=== PATIENT | male | born 1980 | race Caucasian/White ===

== ENCOUNTER 2023-05-02 07:49 | Day surgery (SDC) | payer SELFPAY ==
--- NOTE | 2023-04-26 17:57 | HP ---
DATE: 05/02/2023 HISTORY OF PRESENT ILLNESS: Patient is a 43 year-old male who presents with some bright red blood in the rectum. He had had colonoscopy about 7 years ago. He does have a family history of colon cancer. PAST MEDICAL HISTORY: Heartburn. CURRENT MEDICATIONS: Super beets. ALLERGIES: PER CHART. PAST SURGERIES: None. SOCIAL HISTORY: Negative. FAMILY HISTORY: Colon cancer, hypertension. REVIEW OF SYSTEMS: CONSTITUTIONAL: Denies fever or chills. CHEST: Denies shortness of breath. CVS: Denies chest pain. ABDOMEN: Denies abdominal pain. PHYSICAL EXAMINATION: GENERAL: No acute distress. CHEST: Nonlabored. No shortness of breath. CVS: Regular rate and rhythm. ABDOMEN: Soft. IMPRESSION: 1. FAMILY HISTORY OF COLON CANCER. 2. SOME BLOOD PER RECTUM. PLAN: Colonoscopy with Dr. Mark. Beaulieu. This report was dictated for Dr. Beaulieu by Celia Kincaid NP.
[2023-05-02 08:09] VITALS: TEMP 98.1
[2023-05-02] MEDS ORDERED: Lactated Ringers 1,000 ML IV SCH (08:30)
[2023-05-02] MEDS ORDERED: Versed 2 MG/2 ML Injection ONE (09:42)
[2023-05-02] MEDS ORDERED: DIPRIVAN 200 MG/20 ML IV ONE ×2 (09:42→09:55)
[2023-05-02] MEDS ORDERED: Xylocaine-Mpf 2% 5 Ml Vial ONE (09:42)
[2023-05-02 10:37] VITALS: PULSE 76; RESP 16
[2023-05-02 10:42] VITALS: BP 115/66; O2SAT 97
--- NOTE | 2023-05-02 11:48 | OP ---
SURGERY DATE/TIME: 05/02/2023 0925 PREOPERATIVE DIAGNOSIS: Screening, family history of colon cancer, recent blood per rectum. POSTOPERATIVE DIAGNOSIS: Polyp x2. PROCEDURES: 1) Colonoscopy complete to cecum. 2) Hot polypectomy x2, one polyp in the cecum 6 mm and one polyp in the distal descending 6 mm. 3) Moderate internal hemorrhoids. SURGEON: Krzysztof Beaulieu M.D. ANESTHESIA: MAC. COMPLICATIONS: None. CONDITION: Stable. DESCRIPTION OF PROCEDURE: Patient taken to endoscopy. Anal digital examination satisfactory. Scope advanced to the cecum. Base of the cecum, ileocecal valve, appendiceal orifice were normal. There was a 6 mm polyp in the cecum that was taken with hot biopsy forceps to extinction. Ascending, hepatic, transverse, splenic, descending. Distal descending a 6 mm polyp taken with hot biopsy forceps to extinction. Sigmoid, rectum, anus. Follow up three years. Prep was excellent. Withdrawal time about six minutes.
== END 2023-05-02 10:56 | disposition home or self-care (01) ==
LOC: SDC 07:49
PROVIDERS: ATTEND Surgery
DX: Z12.11 Encounter for screening for malignant neoplasm of colon (principal); Z80.0 Family history of malignant neoplasm of digestive organs; D12.0 Benign neoplasm of cecum; D12.4 Benign neoplasm of descending colon; K92.1 Melena; K64.8 Other hemorrhoids
CPT/HCPCS: J2250; J2704